=== PATIENT | female | born 1975 | race Caucasian/White ===

== ENCOUNTER 2021-07-21 09:51 | Emergency (ER) | payer OTHER ==
[2021-07-21 10:33] LABS: HEMOGLOBIN 12.4 gm/dl (12.3-15.3); RED BLOOD COUNT 4.18 M/UL (4.00-5.10)
[2021-07-21 11:02] LABS: BUN/CREATININE RATIO 21 (0-10)
[2021-07-21] MEDS ORDERED: OMNICEF 300 MG300 MG PO (13:45)
== END 2021-07-21 14:26 | disposition home or self-care (01) ==
LOC: ER1 09:51
PROVIDERS: Emergency Medicine
DX: N39.0 Urinary tract infection, site not specified (principal); F17.200 Nicotine dependence, unspecified, uncomplicated
CPT/HCPCS: 71045; 80053; 81001; 82550; 82553; 83690; 84484; 84703; 85025; 87040; 87086; 93005; 96374; 96375; 99285; J0696; J2270; J2405